=== PATIENT | female | born 1985 | race Two or more races ===

== ENCOUNTER 2016-08-31 17:47 | Emergency (ER) | payer OTHER ==
--- NOTE | ~2016-08-31 | EKG ---
PATIENT: GILBERT ROPER UNIT #: [id number] Ventricular Rate: 69 BPM Atrial Rate: 69 BPM P-R Interval: 120 ms QRS Duration: 72 ms Q-T Interval: 362 ms QTC Calculation(Bezet): 387 ms P Hensley: 70 degrees Calculated R Hensley: 90 degrees Calculated T Hensley: 75 degrees Diagnosis Line: Normal sinus rhythm Diagnosis Line: Rightward axis Diagnosis Line: Borderline ECG Diagnosis Line: No previous ECGs available Diagnosis Line: Confirmed by DANIEL SPANN MD ([id number]) on 08/31/2016 Diagnosis Line: 10:33:43 PM INTERPRETING MD: MARIA INES CHILEL
--- NOTE | ~2016-08-31 | CR72 ---
[facility] A Service of [facility] & [facility] RADIOLOGY TEXT RESULTS PATIENT: GILBERT ROPER LOCATION: [facility] : 89 UNIT #: [id number] AGE: [address]: Clare Gilman MD SEX: F ORDER DR: [id number] [facility] [address] [place], [place] [address] [id number] E MR#: [id number] Acc #: [id number] NAME: GILBERT ROPER : 1985 SEX: F STUDY DATE/TIME: 08/31/2016 19:29 UNIT: [facility] ROOM: STUDY DESCRIPTION: CR Chest Single View Portable Attending Physician: Clare Gilman M.D. Ordering Physician: Clare Gilman M.D. Primary Care Physician: No Primary Care Physician MEDICAL IMAGING REPORT This report is preliminary unless electronic signature is present EXAM Portable chest HISTORY Dizziness, weakness, tingling in arms, shortness of air x 1 hour. FINDINGS A single AP portable view of the chest shows both lungs to be clear. The heart is normal in size. The mediastinal contour is normal. No significant bone abnormalities are seen. IMPRESSION Normal portable chest. Dictated by... Jose Maria Rubalcava M.D. THIS IS AN ELECTRONICALLY VERIFIED REPORT Jose Maria Rubalcava M.D. at 09/01/2016 3:33 PM Viktoriya TD: 09/01/2016 07:08 JOB #: [id number] MEDICAL IMAGING REPORT Page 1 of 1 COPY
[2016-08-31 17:58] LABS: URINE SOURCE CLEAN CATCH
[2016-08-31 18:18] LABS: URINE APPEARANCE CLEAR; URINE BILIRUBIN NEG (NEG); URINE BLOOD NEG (NEG); URINE COLOR YELLOW; URINE GLUCOSE NEG (NEG); URINE KETONE NEG (NEG); URINE LEUKOCYTE ESTERASE NEG (NEG); URINE NITRATE NEG (NEG); URINE PROTEIN NEG (NEG); URINE SPECIFIC GRAVITY 1.023 (1.003-1.035)
[2016-08-31 18:22] LABS: CULTURE INDICATED? NO
[2016-08-31 18:27] LABS: BASOPHIL# 0.1 X10e3 (0-0.3); BASOPHIL% 1.2 % (0-2.5); EOSINOPHIL# 0.3 X10e3 (0-0.7); EOSINOPHIL% 3.2 % (0.0-7.0); HEMOGLOBIN 13.9 gm/dL (12.0-16.0); LYMPHOCYTE# 2.9 X10e3 (1.0-3.5); LYMPHOCYTE% 28.7 % (17.0-45.0); MEAN CELL VOLUME 93.3 FL (83-96); MEAN CORPUSCULAR HEMOGLOBIN 31.7 PG (28-34); MEAN PLATELET VOLUME 8.3 FL (6.5-11.5); MONOCYTE# 0.6 X10e3 (0-1.0); MONOCYTE% 5.6 % (3.0-12.0); NEUTROPHIL# 6.1 X10e3 (1.5-7.1); NEUTROPHIL% 61.3 % (40-75); PLATELET COUNT 245 X10e3 (140-420); RED BLOOD COUNT 4.39 X10e (3.90-5.30); RED CELL DISTRIBUTION WIDTH 11.7 % (11.0-15.5); WHITE BLOOD COUNT 9.9 X10e3 (4.0-10.5)
[2016-08-31 18:28] LABS: DIFF IND NO
[2016-08-31 18:46] LABS: BUN/CREATININE RATIO 17.14; CALCIUM SERUM 9.2 mg/dL (8.4-10.2); CREATININE SERUM 0.7 mg/dL (0.6-1.4); GLOM FILT RATE Estimated 117.1 mL/min (>60); POTASSIUM 4.3 mmol/L (3.5-5.1)
== END 2016-08-31 20:54 | disposition home or self-care (01) ==
LOC: CED 17:47
PROVIDERS: Emergency Medicine
DX: R42 Dizziness and giddiness (principal); F41.9 Anxiety disorder, unspecified
CPT/HCPCS: 36415; 71010; 80048; 81003; 82947; 84703; 85025; 93005; 99283

== ENCOUNTER 2016-10-03 06:25 | Emergency (ER) | payer MEDICAID ==
--- NOTE | ~2016-10-03 | EKG ---
PATIENT: GILBERT ROPER UNIT #: [id number] Ventricular Rate: 75 BPM Atrial Rate: 75 BPM P-R Interval: 140 ms QRS Duration: 82 ms Q-T Interval: 372 ms QTC Calculation(Bezet): 415 ms P Ronda: 91 degrees Calculated R Ronda: 99 degrees Calculated T Ronda: 72 degrees Diagnosis Line: Suspect arm lead reversal, interpretation Diagnosis Line: assumes no reversal Diagnosis Line: Normal sinus rhythm Diagnosis Line: Rightward axis Diagnosis Line: Borderline ECG Diagnosis Line: When compared with ECG of 31-AUG-2016 17:36, Diagnosis Line: No significant change was found Diagnosis Line: Confirmed by RAUDEL LYNCH MD ([id number]) on Diagnosis Line: 10/04/2016 8:36:53 AM INTERPRETING MD: CRIS CHILEL
== END 2016-10-03 07:36 | disposition home or self-care (01) ==
LOC: CED 06:25
DX: F41.0 Panic disorder [episodic paroxysmal anxiety] (principal); F17.210 Nicotine dependence, cigarettes, uncomplicated
CPT/HCPCS: 93005; 99283